=== PATIENT | female | born 1970 | race Caucasian/White ===

== ENCOUNTER 2023-12-14 06:36 | Day surgery (SDC) | payer OTHER ==
[~2023-12-14] VITALS: Ht 157.5 cm; Wt 68.0 kg
[2023-12-14] MEDS ORDERED: fentaNYL citrate 0.05 MG/ML VIAL ONE (07:33)
[2023-12-14] MEDS: fentaNYL citrate 0.05 MG/ML VIAL IVP ONE (07:56)
[2023-12-14] MEDS: LIDOCAINE 2% 100 MG/5 ML UJET TP ONE (08:07)
== END 2023-12-14 09:00 | disposition home or self-care (01) ==
LOC: MOR 06:36 → MMU 06:37 → MOR 09:00
PROVIDERS: ATTEND Internal Medicine Gastroenterology
DX: Z12.11 Encounter for screening for malignant neoplasm of colon (principal); J45.909 Unspecified asthma, uncomplicated; E78.00 Pure hypercholesterolemia, unspecified; Z98.891 History of uterine scar from previous surgery; Z79.899 Other long term (current) drug therapy; Z98.890 Other specified postprocedural states
CPT/HCPCS: 45378; J3010